=== PATIENT | female | born 1980 | race Caucasian/White ===

== ENCOUNTER 2017-01-25 10:52 | Emergency (ER) | payer OTHER ==
[~2017-01-25] VITALS: Ht 149.9 cm; Wt 90.7 kg
[~2017-01-25 10:52] MED LIST: LORA-441 PO; PANT40TA4 PO
[2017-01-25 10:56] VITALS: Ht 149.9 cm; Wt 90.7 kg
[2017-01-25 11:54] LABS: BASOPHILS % 0.3 % (0.0-2.0); EOSINOPHILS # 0.3 10^3/ul (0.0-0.5); EOSINOPHILS % 2.3 % (0.0-7.0); HEMATOCRIT 34.9 % (37.0-47.0); HEMOGLOBIN 10.6 g/dl (12.0-16.0); LYMPHOCYTES # 1.9 10^3/ul (0.8-2.9); LYMPHOCYTES % 16.8 % (15.0-51.0); MEAN CORPUSCULAR HEMOGLOBIN 22.4 pg (29.0-33.0); MEAN CORPUSCULAR HGB CONC 30.4 g/dl (32.0-37.0); MEAN CORPUSCULAR VOLUME 73.6 fl (82.0-101.0); MONOCYTE # 0.6 10^3/ul (0.3-0.9); MONOCYTES % 5.6 % (0.0-11.0); NEUTROPHIL # 8.3 10^3/ul (1.6-7.5); NEUTROPHILS % 74.6 % (39.0-77.0); PLATELET COUNT 327 10^3/UL (140-415); RED BLOOD COUNT 4.74 10^6/ul (4.20-5.40); WHITE BLOOD COUNT 11.1 10^3/ul (4.8-10.8)
[2017-01-25 12:11] LABS: ANION GAP 14 (8-16); BLOOD UREA NITROGEN 12 mg/dl (7-20); CARBON DIOXIDE 24 mmol/L (21-31); CHLORIDE 109 mmol/L (97-110); CREATININE 0.73 mg/dl (0.44-1.00); GLUCOSE 117 mg/dl (70-220); POTASSIUM 3.9 mmol/L (3.5-5.1); SODIUM 143 mmol/L (135-144)
[2017-01-25 12:23] LABS: TROPONIN-I < 0.012 ng/ml (0.00-0.12)
[2017-01-25 12:25] LABS: D-DIMER 468.17 ng/ml (<460)
--- NOTE | 2017-01-25 13:09 | RADRPT ---
PROCEDURE: Chest x-ray CLINICAL INDICATION: Chest pain TECHNIQUE: Chest single view COMPARISON: None FINDINGS: The heart is normal in size. The pulmonary vessels are normal in caliber. The lungs are clear. Th e costophrenic angles are sharp. The visualized bony thorax is unremarkable. IMPRESSION: No acute cardiopulmonary disease. Low lung volumes RPTAT: HH .Mateusz Redd MD, Date Time Electronically viewed and signed by .Mateusz Redd MD, on 01/25/2017 13:08 .W/
[2017-01-25] MEDS ORDERED: IBUP-1542 PO (13:40)
--- NOTE | 2017-01-25 13:53 | ERD ---
ER Documentation Chief Complaint Date/Time DATE: 01/25/17 TIME: 13:52 Chief Complaint CHEST PAIN X 5 DAYS RADIATING TO BACK HPI 36-year-old female with no significant past medical history other than hypothyroidism presenting to the ER complaining of left-sided chest pain for the past 5 days. The pain is constant, radiating to the left shoulder and her left back. Is worse with movement. She states she is very stressed as her 19- year-old son has moved out of the house. She cries often and feels very anxious. She has had symptoms like this before about 1 year ago and went to [place] and was medically cleared at that time. She denies any recent surgeries , immobilizations, estrogen use. She does have occasional dizziness and shortness of breath associated with her symptoms. No history of blood clots. Denies any suicidal or homicidal ideations. ROS All systems reviewed and are negative except as per history of present illness. Medications Home Meds Active Scripts Ibuprofen* (Motrin*) 600 Mg Tab, 600 MG PO Q6H Y for PAIN AND OR ELEVATED TEMP, #30 TAB Prov:HEVER BAZZI MD 01/25/17 Lorazepam* (Ativan*) 0.5 Mg Tablet, 0.5 MG PO Q8, #10 Prov:CHARLIE MCKEE PA-C 01/25/15 Reported Medications Pantoprazole* (Pantoprazole*) 40 Mg Tablet.dr, 40 MG PO AC BREAKFAST, TAB 03/22/14 Allergies Allergies: Coded Allergies: No Known Drug Allergies (Verified Allergy, Mild, 01/25/15) PMhx/Soc History of Surgery: No (Tubal ligation, gallbladder) Anesthesia Reaction: No Hx Neurological Disorder: No Hx Respiratory Disorders: No Hx Cardiac Disorders: Yes (HTN) Hx Psychiatric Problems: No Hx Miscellaneous Medical Probl: No Hx Alcohol Use: No Hx Substance Use: No Hx Tobacco Use: No Smoking Status: Never smoker FmHx Family History: coronary disease (Father of heart disease in his 60s), diabetes Physical Exam Vitals Vital Signs Date Time Temp Pulse Resp B/P Pulse Ox O2 Delivery O2 Flow Rate FiO2 01/25/17 14:16 98.0 77 21 101/69 98 Room Air 01/25/17 11:23 Nasal Cannula 2 01/25/17 10:56 99.1 88 18 173/83 99 Physical Exam Const: Appearing, no apparent distress, nontoxic, no diaphoresis. Head: Atraumatic Eyes: Normal Conjunctiva ENT: Normal External Ears, Nose and Mouth. Neck: Full range of motion..~ No meningismus. Chest wall: Tenderness to palpation of left upper chest wall, reproduces pain Resp: Clear to auscultation bilaterally Cardio: Regular rate and rhythm, no murmurs. 2+ distal pulses, equal in all 4 extremities Abd: Soft, non tender, non distended. Normal bowel sounds Skin: No petechiae or rashes Back: No midline or flank tenderness Ext: No cyanosis, or edema. No calf tenderness Neur: Awake and alert Psych: Normal Mood and Affect. no SI or HI. Result Diagram: 01/25/17 1147 01/25/17 1147 Results 24 hrs Laboratory Tests Test 01/25/17 11:00 01/25/17 11:47 D-Dimer 468.17ng/ml D-Dimer Comment White Blood Count 11.110^3/ul Red Blood Count 4.7410^6/ul Hemoglobin 10.6g/dl Hematocrit 34.9% Mean Corpuscular Volume 73.6fl Mean Corpuscular Hemoglobin 22.4pg Mean Corpuscular Hemoglobin Concent 30.4g/dl Red Cell Distribution Width 16.0% Platelet Count 45361^3/UL Mean Platelet Volume 10.0fl Neutrophils % 74.6% Lymphocytes % 16.8% Monocytes % 5.6% Eosinophils % 2.3% Basophils % 0.3% Nucleated Red Blood Cells % 0.0/100WBC Neutrophils # 8.310^3/ul Lymphocytes # 1.910^3/ul Monocytes # 0.610^3/ul Eosinophils # 0.310^3/ul Basophils # 0.010^3/ul Nucleated Red Blood Cells # 0.010^3/ul Sodium Level 143mmol/L Potassium Level 3.9mmol/L Chloride Level 109mmol/L Carbon Dioxide Level 24mmol/L Anion Gap 14 Blood Urea Nitrogen 12mg/dl Creatinine 0.73mg/dl Glucose Level 117mg/dl Calcium Level 9.0mg/dl Troponin I < 0.012ng/ml Serum HCG, Qualitative NEGATIVE Procedures/MDM The patient presents with chest pain. Vitals are stable. I considered pulmonary embolism, aortic dissection, pneumothorax among other diagnoses. Evaluation for acute coronary syndrome was performed. The HEART score was utilized for risk stratification and found to be 1. EKG and troponin were not done as the patient has had symptoms for 5 days.. Based on this evaluation the patient's risk of major adverse cardiac events is <1%. D-dimer was below 500, and she is low risk for PE, so I do not think a CTPA is warranted at this time as my suspicion for PE is very low. Shared decision making occurred with patient and the decision has been made to discharge the patient for outpatient evaluation and functional study within 72 hours. Patient instructed to arrange follow up with PCP in the next 2 days and return to the ED for any new or worsening symptoms. Departure Diagnosis: Primary Impression: Chest pain Chest pain type: unspecified Qualified Code: R07.9 - Chest pain, unspecified type Additional Impression: Dizziness Condition: Stable Patient Instructions: Stress: Causes and Effects, Chest Pain, Uncertain Cause Referrals: PURA ROLON (PCP) Additional Instructions: Return to the ER if you are having any worsening symptoms. Follow-up with your primary care doctor tomorrow for a recheck. I also recommend you see a therapist regarding the stress in your life. Discuss this with your doctor. HEVER BAZZI MD Jan 25, 2017 13:53
[2017-01-25 14:16] VITALS: BP 101/69; PULSE 77; RESP 21; TEMP 98
== END 2017-01-25 13:30 | disposition home or self-care (01) ==
LOC: E/R 10:52
DX: R07.9 Chest pain, unspecified (principal); R42 Dizziness and giddiness; I10 Essential (primary) hypertension; E03.9 Hypothyroidism, unspecified
CPT/HCPCS: 36415; 71010; 80048; 84484; 84703; 85025; 85378; 93005; Z7502